=== PATIENT | male | born 1950 | race African-American/Black ===

== ENCOUNTER 2016-07-31 01:48 | Emergency (ER) | payer MEDICARE ==
[~2016-07-31 01:48] MED LIST: CARV3.122 PO; GLYB1.252 PO; LISI10TA2 PO; METF100010 PO; SIMV20TA3 PO; SITA100T PO
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
[2016-07-31] MEDS ORDERED: IBUPROFEN 600 MG TABLET. PO ONE (02:15)
[2016-07-31] MEDS ORDERED: NEOMY/BACITR/POLYMYXIN OINT PACKET. TP ONE (02:15)
[2016-07-31 02:20] VITALS: BP 145/87
== END 2016-07-31 02:25 | disposition home or self-care (01) ==
LOC: ER 01:48
DX: S01.81XA Laceration without foreign body of other part of head, initial encounter (principal); S09.90XA Unspecified injury of head, initial encounter; I10 Essential (primary) hypertension; E11.9 Type 2 diabetes mellitus without complications; Y08.89XA Assault by other specified means, initial encounter; Y93.89 Activity, other specified; Y92.89 Other specified places as the place of occurrence of the external cause; Y99.8 Other external cause status
CPT/HCPCS: 12011; 99283-25